=== PATIENT | female | born 1955 | race Caucasian/White ===

== ENCOUNTER → 2020-10-31 | Outpatient (CLI) | payer MEDICARE, OTHER | LOC: HEART 5 08:00 | DX: R94.31 Abnormal electrocardiogram [ECG] [EKG] (principal); I10 Essential (primary) hypertension; I27.20 Pulmonary hypertension, unspecified; I08.2 Rheumatic disorders of both aortic and tricuspid valves | CPT/HCPCS: 93306 ==

== ENCOUNTER → 2021-06-13 | Outpatient (CLI) | payer MEDICARE, OTHER | LOC: KOH-I 11:57 | DX: M25.511 Pain in right shoulder (principal); M25.551 Pain in right hip | CPT/HCPCS: 73030; 73502 ==

== ENCOUNTER → 2021-07-08 | Outpatient (CLI) | payer MEDICARE, OTHER | LOC: HEART 5 11:30 | DX: R07.9 Chest pain, unspecified (principal); I10 Essential (primary) hypertension ==